=== PATIENT | female | born 1965 | race Caucasian/White ===

== ENCOUNTER → 2020-06-21 16:11 | Outpatient (BNVA) | payer SELFPAY | PROVIDERS: Family Provider Internal Medicine; PCP Internal Medicine; Visit Provider Nurse Practitioner Family | DX: N39.0 Urinary tract infection, site not specified (principal) | CPT/HCPCS: 81000 ==

== ENCOUNTER → 2024-08-03 14:13 | Outpatient (BNVA) | payer BC, SELFPAY | PROVIDERS: Family Provider Internal Medicine; PCP Nurse Practitioner Family; Visit Provider Nurse Practitioner Family | DX: E55.9 Vitamin D deficiency, unspecified (principal); R06.02 Shortness of breath; Z79.899 Other long term (current) drug therapy; K63.5 Polyp of colon; K92.1 Melena; R14.0 Abdominal distension (gaseous); D64.9 Anemia, unspecified | CPT/HCPCS: 71046; 80053; 80061; 81003; 82306; 82607; 83550; 84443; 85025 ==